=== PATIENT | male | born 1965 | race African-American/Black ===

== ENCOUNTER 2016-05-26 15:08 | Day surgery (SDC) | payer OTHER ==
[~2016-05-26] VITALS: Ht 188 cm; Wt 129.5 kg
[~2016-05-26 15:08] MED LIST: AMBIEN10 MG PO; MS CONTIN,ORAMO30 MG PO; NORCO 5/3251 TABLET PO; NORVASC10 MG PO; PRINIVIL20 MG PO; ROXICODONE30 MG PO; VITAMIN D31000 UNIT PO
[2016-05-26] MEDS ORDERED: LIPITOR20 MG PO (15:22)
[2016-05-26] MEDS ORDERED: LEXAPRO10 MG PO (15:22)
[2016-05-26] MEDS ORDERED: TESTIM 1% TP (15:24)
[2016-05-26] MEDS ORDERED: NEPHRO-VITE,1 TABLET PO (15:24)
[2016-05-26] MEDS ORDERED: TYLENOL EXTRA500 MG PO (15:25)
[2016-05-26] MEDS ORDERED: ROCALTROL0.25 MCG PO (15:26)
[2016-05-26 16:15] LABS: HEMATOCRIT 28.6 % (38.0-50.0); MCV 88.8 FL (86-99)
[2016-05-26 16:34] VITALS: BP 108/74
[2016-05-26 16:34] LABS: ANION GAP 7 MEQ/L (2-14); CHLORIDE 106 MEQ/L (99-109); POTASSIUM 3.6 MEQ/L (3.7-5.4); SAMPLE HEMOLYSIS CHECK 0; SAMPLE ICTERIC CHECK 0; SAMPLE LIPEMIA CHECK 0; SODIUM 143 MEQ/L (136-147)
[2016-05-26 16:39] LABS: GFR ESTIMATE (CALCULATED) 10 mL/min/; GLUCOSE 92 mg/dL (70-99); UREA NITROGEN (BUN) 31 mg/dL (9-23)
[2016-05-27 01:31] VITALS: BP 144/69
== END 2016-05-27 02:18 | disposition home or self-care (01) ==
LOC: SDC 15:08 → 2SOUTH 23:12 → 2EASTP 05-27 01:18
PROVIDERS: Surgery
PROC: 0WPG33Z Removal of Infusion Device from Peritoneal Cavity, Percutaneous Approach (ICD-10-PCS; principal; 2016-05-26)
PROC: 02HV33Z Insertion of Infusion Device into Superior Vena Cava, Percutaneous Approach (ICD-10-PCS; principal; 2016-05-26)
DX: T85.691A Other mechanical complication of intraperitoneal dialysis catheter, initial encounter (principal); Y83.8 Other surgical procedures as the cause of abnormal reaction of the patient, or of later complication, without mention of misadventure at the time of the procedure; Z99.2 Dependence on renal dialysis; I12.0 Hypertensive chronic kidney disease with stage 5 chronic kidney disease or end stage renal disease; N18.6 End stage renal disease; K21.9 Gastro-esophageal reflux disease without esophagitis; Z87.891 Personal history of nicotine dependence
CPT/HCPCS: 71010; 80048; 85014; 85018; 93005; C1769; C1788; C1894; G0378; J0330; J1170; J1644; J2405; J3010; S0020

== ENCOUNTER 2016-07-08 10:59 | Day surgery (SDC) | payer OTHER ==
[~2016-07-08] VITALS: Ht 188 cm; Wt 121.6 kg
[~2016-07-08 10:59] MED LIST changes: +LEXAPRO10 MG PO; +LIPITOR20 MG PO; +NEPHRO-VITE,1 TABLET PO; +ROCALTROL0.25 MCG PO; +TESTIM 1% TP; +TYLENOL EXTRA500 MG PO; +XTAMPZA ER36 MG PO
[2016-07-08 11:51] LABS: HEMATOCRIT 30.6 % (38.0-50.0); MCH 29.6 PG (29.0-34.0); MCHC 31.4 G/DL (30.0-36.0); MCV 94.4 FL (86-99); MEAN PLAT.VOLUME 9.5 uM^3 (9.0-12.4); PLATELET COUNT 240 K/uL (156-360); RBC DIS.WIDTH-CV 13.1 % (11.8-14.6); RED BLOOD COUNT 3.24 M/uL (4.00-5.50); WHITE BLOOD COUNT 7.8 K/uL (4.1-10.2)
[2016-07-08 12:00] VITALS: BP 114/68
[2016-07-08 12:06] LABS: ANION GAP 12 MEQ/L (2-14); CHLORIDE 102 MEQ/L (99-109); POTASSIUM 4.6 MEQ/L (3.7-5.4); SAMPLE HEMOLYSIS CHECK 0; SAMPLE ICTERIC CHECK 0; SAMPLE LIPEMIA CHECK 0; SODIUM 142 MEQ/L (136-147)
[2016-07-08 12:12] LABS: GFR ESTIMATE (CALCULATED) 9 mL/min/; GLUCOSE 91 mg/dL (70-99); UREA NITROGEN (BUN) 32 mg/dL (9-23)
[2016-07-08] MEDS ORDERED: NORCO 5/3251 TABLET PO (16:18)
[2016-07-08 17:15] VITALS: BP 122/70
[2016-07-08 17:56] VITALS: BP 125/68
== END 2016-07-08 18:10 | disposition home or self-care (01) ==
LOC: SDC 10:59
PROVIDERS: Surgery
PROC: 03180ZD Bypass Left Brachial Artery to Upper Arm Vein, Open Approach (ICD-10-PCS; principal; 2016-07-08)
DX: I12.0 Hypertensive chronic kidney disease with stage 5 chronic kidney disease or end stage renal disease (principal); N18.6 End stage renal disease; Z99.2 Dependence on renal dialysis; N25.81 Secondary hyperparathyroidism of renal origin; D50.9 Iron deficiency anemia, unspecified; E55.9 Vitamin D deficiency, unspecified; E66.9 Obesity, unspecified; F32.9 Major depressive disorder, single episode, unspecified; E78.5 Hyperlipidemia, unspecified; M19.90 Unspecified osteoarthritis, unspecified site; G89.29 Other chronic pain; Z79.891 Long term (current) use of opiate analgesic; Z87.891 Personal history of nicotine dependence; Z80.1 Family history of malignant neoplasm of trachea, bronchus and lung; Z84.1 Family history of disorders of kidney and ureter
CPT/HCPCS: 80048; 85027; 87641; J0690; J1644; J2250; J2405; J3010

== ENCOUNTER → 2016-09-21 | Outpatient (CLI) | payer OTHER ==
[~2016-09-21] MED LIST changes: +ELIQUIS5 MG PO
== END | disposition home or self-care (01) ==
LOC: AMB 07:59
PROC: 0JPTXXZ Removal of Tunneled Vascular Access Device from Trunk Subcutaneous Tissue and Fascia, External Approach (ICD-10-PCS; principal; 2016-09-21)
DX: N18.6 End stage renal disease (principal); Z99.2 Dependence on renal dialysis